=== PATIENT | male | born 1985 | race Caucasian/White ===

== ENCOUNTER 2018-11-06 21:11 | Emergency (ER) | payer SELFPAY ==
[~2018-11-06] VITALS: Ht 167.6 cm; Wt 65.8 kg
[2018-11-06 21:17] VITALS: BP 120/89
--- NOTE | 2018-11-06 21:21 | NUR ---
pt ambulated to lobby in stable condition.
--- NOTE | 2018-11-06 22:01 | NUR ---
PT RETURN TO BED 3 FROM XRAY
--- NOTE | 2018-11-06 22:01 | NUR ---
Yolanda canales in [facility] - 11/06/18 at 2201 by MALVIN PT TAKEN TO BED 3
--- NOTE | 2018-11-06 22:10 | NUR ---
33 Y/O w/c/o dog bite to l wrist one hour ago. bleeding controlled at this time. peripheral pulses presesnt. cap refill <3; HR EVEN AND REGULAR, BL PERIPHERAL PULSES PRESENT;PT DENIES ANY FEVER, CP, SOB, OR COUGH AT THIS TIME; PT STATES 8/10 PAIN AT THIS TIME; VSS; PATIENT POSITIONED FOR COMFORT; HOB ELEVATED; BEDRAILS UP X2; BED DOWN. pmh: none nka
[2018-11-06] MEDS ORDERED: LIDOCAINE 2% 1000 MG/50 ML VIAL INJ ONE (22:45)
[2018-11-06 23:45] VITALS: BP 120/89
--- NOTE | 2018-11-06 23:45 | NUR ---
Patient discharged with v/s stable. Written and verbal after care instructions given and explained. Patient alert, oriented and verbalized understanding of instructions. Ambulatory with steady gait. All questions addressed prior to discharge. ID band removed. Patient advised to follow up with PMD. Rx of MOTRIN AND AUGMENTIN WAS given. Patient educated on indication of medication including possible reaction and side effects. Opportunity to ask questions provided and answered.
== END 2018-11-06 23:45 | disposition home or self-care (01) ==
LOC: MED 21:11
DX: S61.551A Open bite of right wrist, initial encounter (principal); W54.0XXA Bitten by dog, initial encounter; Y93.89 Activity, other specified; Y92.89 Other specified places as the place of occurrence of the external cause; Y99.8 Other external cause status
CPT/HCPCS: 12002; 73110; 90471; 90715; 99283; J2001